=== PATIENT | male | born 1975 | race Caucasian/White ===

== ENCOUNTER 2019-08-02 | Emergency (ER) | payer OTHER ==
[2019-08-02] MEDS ORDERED: VOLTAREN - GENE75 MG PO (23:21)
== END 2019-08-02 23:40 | disposition home or self-care (01) | DRG 605 ==
DX: S60.151A Contusion of right little finger with damage to nail, initial encounter (principal); F17.220 Nicotine dependence, chewing tobacco, uncomplicated; W23.1XXA Caught, crushed, jammed, or pinched between stationary objects, initial encounter; Y92.009 Unspecified place in unspecified non-institutional (private) residence as the place of occurrence of the external cause